=== PATIENT | male | born 1990 | race Caucasian/White ===

== ENCOUNTER 2017-07-10 20:07 | Emergency (ER) | payer SELFPAY ==
[2017-07-10 20:08] VITALS: BMI 26.8
[2017-07-10 20:21] VITALS: BP 150/85; PULSE 88; RESP 20; TEMP 98.1; O2SAT 97
--- NOTE | 2017-07-10 20:47 | C.PDOC ---
History Of Present Illness 27 y/o healthy male c/o cough with white/yellow sputum, nasal congestion, bodyaches, pleuritic chest pain for last week with no fevers. . pt was seen in clinic and started on zithromax, guiafenesin/sudafed, and benzonatate yesterday. pt reports symptoms not improving, still coughing a lot at night and chest hurts when he coughs. Time Seen by Provider: 07/10/17 20:36 Chief Complaint (Nursing): Cough, Cold, Congestion History Per: Patient History/Exam Limitations: no limitations Onset/Duration Of Symptoms: Days (7) Current Symptoms Are (Timing): Still Present Location Of Pain: Throat, Diffuse Myalgias Sick Contacts (Context): Individual(s) At Work Associated Symptoms: Sore Throat, Cough, Sputum, Nasal Congestion. denies: Vomiting, Diarrhea Ear Symptoms: Bilateral: None Past Medical History Reviewed: Historical Data, Nursing Documentation, Vital Signs Vital Signs: Last Vital Signs Temp 98.1 F 07/10/17 20:15 Pulse 88 07/10/17 20:15 Resp 20 07/10/17 20:15 BP 150/85 07/10/17 20:15 Pulse Ox 97 07/10/17 20:15 - Medical History PMH: No Chronic Diseases Surgical History: No Surg Hx Family History: States: Unknown Family Hx - Social History Hx Tobacco Use: No Hx Alcohol Use: No Hx Substance Use: No - Immunization History Hx Tetanus Toxoid Vaccination: No Hx Influenza Vaccination: No Hx Pneumococcal Vaccination: No Review Of Systems Constitutional: Negative for: Fever, Chills ENT: Positive for: Nose Discharge. Negative for: Ear Pain, Throat Pain Cardiovascular: Negative for: Chest Pain Respiratory: Positive for: Cough, Pleuritic Pain, Sputum. Negative for: Shortness of Breath Gastrointestinal: Negative for: Nausea, Vomiting, Abdominal Pain Skin: Negative for: Rash Neurological: Positive for: Headache Physical Exam - Physical Exam Appears: Non-toxic, No Acute Distress Skin: Normal Color, Warm, Dry Head: Atraumatic, Normacephalic Eye(s): bilateral: Normal Inspection Ear(s): Bilateral: Normal Nose: No Discharge Oral Mucosa: Moist Tongue: Normal Appearing Lips: Normal Appearing Throat: Erythema (mild), No Exudate Neck: Supple Lymphatic: No Adenopathy Chest: Symmetrical, No Deformity, No Tenderness Cardiovascular: Rhythm Regular, No Murmur Respiratory: No Decreased Breath Sounds, No Accessory Muscle Use, No Rales, No Rhonchi, No Wheezing ED Course And Treatment O2 Sat by Pulse Oximetry: 97 Medical Decision Making Medical Decision Making: pt with uri symptoms, taking cough medicine, antibiotics, decongestant and not feeling better. will add antihistamine for post nasal drip and nsaid for pleuritic pain. discussed with patient that this is most likely viral in origin and may take up to 3 weeks to resolve, supportive care. Disposition - Disposition Disposition: HOME/ ROUTINE Disposition Time: 20:52 Condition: STABLE Additional Instructions: Please take ibuprofen as prescribed for headache and chest pain during coughing. Take Dipheynydramine at bedtime (makes you sleepy) to help dry up nasal secretions and decrease post nasal drip. Do not take this medicine if you are working. Continue with your other medications. You will gradually start to feel better in the next week. Follow up with your doctor in the next few days. Prescriptions: DiphenhydrAMINE [Benadryl] 50 mg PO HS #30 cap Ibuprofen [Motrin] 600 mg PO TID #30 tab Instructions: Upper Respiratory Infection (ED) - Clinical Impression Clinical Impression: Upper respiratory infection
== END 2017-07-10 21:05 | disposition home or self-care (01) ==
LOC: C.ER 20:07
DX: J06.9 Acute upper respiratory infection, unspecified (principal)